=== PATIENT | female | born 1935 | race Caucasian/White ===

== ENCOUNTER → 2017-10-08 13:22 | Outpatient (CLI) | payer MEDICARE, BC, SELFPAY ==
--- NOTE | 2017-10-08 | DI.US.S_ITS ---
PROCEDURE: US ABD AORTA ANEURYSM SCREEN INDICATIONS: SCREENING TECHNIQUE: Real time scanning was performed of the aorta and iliac arteries, with image documentation. COMPARISON: None. FINDINGS: Aorta: Proximal aortic diameter measures 1.8 cm. Mid-aorta measures 1.4 cm. Distal aortic diameter is 1.4 cm. Iliac arteries: Right common iliac artery measures 0.9 cm. Left common iliac artery measures 1.1 cm. IMPRESSION: No abdominal aortic aneurysm. Dictated by: Sage Light M.D. on 10/08/2017 at 14:36 Approved by: Sage Light M.D. on 10/08/2017 at 14:37
== END ==
PROVIDERS: Visit Provider Nurse Practitioner Family
DX: Z13.6 Encounter for screening for cardiovascular disorders (principal); M81.0 Age-related osteoporosis without current pathological fracture
CPT/HCPCS: 76706; 77080